=== PATIENT | male | born 1935 | race Caucasian/White ===

== ENCOUNTER 2017-02-01 09:30 | Emergency (ER) | payer OTHER, MEDICAID ==
[~2017-02-01] VITALS: Ht 157.5 cm; Wt 46.7 kg
[2017-02-01 10:49] LABS: CALCIUM 9.1 mg/dL (8.5-10.1); CARBON DIOXIDE 24.6 mmol/L (21-32); CHLORIDE SERUM 102 mmol/L (98-107); CREATININE SERUM 1.3 mg/dL (0.7-1.3); GLUCOSE SERUM 114 mg/dL (74-106); POTASSIUM SERUM 4.2 mmol/L (3.5-5.1); SODIUM SERUM 138 mmol/L (136-145)
[2017-02-01 10:55] LABS: ALBUMIN 3.7 g/dL (3.4-5.0); ALKALINE PHOSPHATASE 159 U/L (46-116); ALT/SGPT 38 U/L (16-63); AST/SGOT 34 U/L (15-37); BILIRUBIN TOTAL 1.8 mg/dL (0.20-1.00); TOTAL PROTEIN, SERUM 8.4 g/dL (6.4-8.2)
[2017-02-01 11:00] LABS: BASOPHIL % 0 % (0-2)
[2017-02-01 11:07] LABS: PLATELET COUNT 226 x10^3mcL (130-400)
[2017-02-01 11:08] LABS: RED CELL DISTRIBUTION WIDTH 15.9 % (11.5-14.5)
[2017-02-01 11:52] VITALS: BP 106/72
== END 2017-02-01 11:52 | disposition home or self-care (01) ==
LOC: ED 09:30
PROVIDERS: Emergency Medicine
DX: R19.7 Diarrhea, unspecified (principal); Z86.79 Personal history of other diseases of the circulatory system
CPT/HCPCS: 36415

== ENCOUNTER 2017-06-12 13:43 | Emergency (ER) | payer OTHER, MEDICAID ==
[2017-06-12 15:13] VITALS: BP 137/86
[2017-06-12 15:30] LABS: BASOPHIL % 0.4 % (0-2); PLATELET COUNT 207 x10^3mcL (130-400)
[2017-06-12 15:39] LABS: RED CELL DISTRIBUTION WIDTH 15.8 % (11.5-14.5)
[2017-06-12 15:50] LABS: CALCIUM 8.6 mg/dL (8.5-10.1); CARBON DIOXIDE 23.2 mmol/L (21-32); CHLORIDE SERUM 106 mmol/L (98-107); CREATININE SERUM 1.3 mg/dL (0.7-1.3); GLUCOSE SERUM 98 mg/dL (74-106); POTASSIUM SERUM 4.3 mmol/L (3.5-5.1); SODIUM SERUM 140 mmol/L (136-145)
[2017-06-12 16:02] LABS: ALBUMIN 3.4 g/dL (3.4-5.0); ALKALINE PHOSPHATASE 115 U/L (46-116); ALT/SGPT 38 U/L (16-63); AMYLASE 58 U/L (25-115); AST/SGOT 37 U/L (15-37); BILIRUBIN TOTAL 0.87 mg/dL (0.20-1.00); HDL CHOLESTEROL 36 mg/dL (40-60); LIPASE 122 IU/L (73-393); T4(THYROXINE) 8.2 ug/dL (4.7-13.3)
[2017-06-12 16:11] LABS: CHOLESTEROL 81 mg/dL (<200)
[2017-06-12 16:39] LABS: UA SPECIFIC GRAVITY >=1.030 (1.005-1.035); microscopic required? YES; urine erythrocyte TRACE (NEGATIVE)
[2017-06-12 16:51] LABS: AMPHETAMINE QUAL UR NONE DETECTED (NEG <=1000)
== END 2017-06-12 15:24 | disposition short-term general hospital (02) ==
LOC: ED 13:43
PROVIDERS: Emergency Medicine
DX: I70.8 Atherosclerosis of other arteries (principal); I48.91 Unspecified atrial fibrillation
CPT/HCPCS: 83880; J1644; Q0092